=== PATIENT | female | born 1950 | race Two or more races ===

== ENCOUNTER 2016-11-08 17:15 | Emergency (ER) | payer MEDICAID ==
[~2016-11-08] VITALS: Ht 165.1 cm; Wt 86.2 kg
[~2016-11-08 17:15] MED LIST: ASPI81TA2 PO; CARV12.5 PO; Ergocalciferol PO; FURO-144 PO; INSU100I19 SQ; LEVO25TA7 PO; LISI10TA59 PO; METF10002 PO
[2016-11-08 17:51] LABS: BASOPHILS % (AUTO) 0.3 % (0.0-2.0); DIFF TOTAL % 100 %; EOSINOPHILS # (AUTO) 0.1 /CMM (0.0-0.7); EOSINOPHILS % (AUTO) 0.4 % (0.0-6.0); HEMATOCRIT 33 % (33-45); HEMOGLOBIN 10.7 g/dL (11.5-14.8); LYMPHOCYTES # (AUTO) 1.6 /CMM (0.8-4.8); LYMPHOCYTES % (AUTO) 9.5 % (20.0-44.0); MEAN CORPUSCULAR HEMOGLOBIN 27 PG (26.0-33.0); MEAN CORPUSCULAR HGB CONC 32 g/dl (31.0-36.0); MEAN CORPUSCULAR VOLUME 83 fL (82-100); MONOCYTES # (AUTO) 0.5 /CMM (0.1-1.30); MONOCYTES % (AUTO) 3.2 % (2.0-12.0); NEUTROPHILS # (AUTO) 14.3 /CMM (1.8-8.9); NEUTROPHILS % (AUTO) 86.6 % (43.0-81.0); PLATELET COUNT (AUTO) 314 /CMM (150-450); RED BLOOD CELL COUNT(AUTO) 3.98 MIL/uL (4.0-5.2); WHITE BLOOD COUNT (AUTO) 16.5 K/uL (4.3-11.0)
[2016-11-08 17:53] LABS: KETONES,URINE Trace (NEGATIVE); LEUKOCYTE ESTERASE ,URINE Moderate (NEGATIVE)
[2016-11-08 17:59] LABS: CALCIUM, SERUM 9.6 mg/dL (8.5-10.1); CREATININE 1.2 mg/dL (0.6-1.3); POTASSIUM 4.5 mmol/L (3.5-5.1)
[2016-11-08 17:59] LABS: ADD UA MICROSCOPIC YES
[2016-11-08] MEDS ORDERED: IBUPROFEN 400 MG TABLET PO ONE (18:00)
[2016-11-08] MEDS ORDERED: IBUPROFEN 400 MG TABLET ONE (18:01)
[2016-11-08 18:04] LABS: ADD URINE CULTURE YES
[2016-11-08 18:05] LABS: ALBUMIN 2.6 g/dL (3.4-5.0); BILIRUBIN,DIRECT 0.4 mg/dL (0.0-0.2); BILIRUBIN,TOTAL 1.5 mg/dL (0.2-1.0); INDIRECT BILIRUBIN 1.1 mg/dL (0.0-1.1); TOTAL PROTEIN, SERUM 8.1 g/dL (6.4-8.2)
[2016-11-08] MEDS ORDERED: CEFTRIAXONE 1 G VIAL IM ONE (18:30)
[2016-11-08] MEDS ORDERED: CEFTRIAXONE 1 G VIAL ONE (18:43)
[2016-11-08] MEDS ORDERED: LIDOCAINE /MPF 1% VIAL 5 ML VIAL ONE (18:43)
[2016-11-08 19:03] VITALS: BP 126/59
== END 2016-11-08 19:03 | disposition home or self-care (01) ==
LOC: ER 17:17
DX: N39.0 Urinary tract infection, site not specified (principal); I10 Essential (primary) hypertension; E11.9 Type 2 diabetes mellitus without complications; Z90.710 Acquired absence of both cervix and uterus; Z95.2 Presence of prosthetic heart valve
CPT/HCPCS: 36415; 80048; 80076; 81001; 83690; 85025; 87077; 87086; 87186; 96372; 99284; A4606; J0696; J3490; Z7610; 81000-TC